=== PATIENT | female | born 1930 | race Caucasian/White ===

== ENCOUNTER 2016-07-06 09:07 | Observation (INO) | payer OTHER ==
--- NOTE | ~2016-07-06 | HP ---
History And Physical [place] [id number] [facility] [place]. [address] NAME: YENNY REEVES : 32 STATUS : ADM Lev PAT#: [id number] AGE: 85 ADM/REG DATE : 07/06/16 MR#: [id number] REPORT SERV DATE: 07/07/16 DICTATED BY: SHERRILL DELGADILLO III DATE: 07/06/16 REPORT STATUS : Draft TRANSCRIBED BY: JAMILAH DATE: 07/06/16 DATE OF ADMISSION: 07/06/2016 HISTORY OF PRESENT ILLNESS: Mrs. Yenny Reeves is an 85-year-old white female from [place], [place], admitted for evaluation of chest pain. The patient has no coronary artery disease. The patient underwent percutaneous coronary intervention with implantation of a stent in 10/[address] Ashutosh Bauer. The patient has undergone no coronary angiography since that time. A recent echocardiogram demonstrated the left ventricular ejection fraction of 40% and moderate mitral regurgitation. The patient had been in her usual state of health until approximately one year prior to this admission. At that time, the patient had the onset of dull substernal-epigastric chest pain without radiation. The patient denied any associated dyspnea, diaphoresis, nausea, or vomiting. The patient's chest pains have been exacerbated by deep inspiration. The patient denied relation to exertion, emotional upset, oral intake, and positional change. The patient denied relief with nitroglycerin. The patient denied trying antacids or heating pad. The patient has no history of migraine headaches or symptoms suggestive of Raynaud phenomenon. On 06/17/2016, the patient underwent an intravenous regadenoson dual isotope scintigram. Myocardial perfusion imaging demonstrated a fixed apical defect. Gated SPECT images demonstrated global hypokinesis. The calculated global left ventricular ejection fraction was 32%. The patient was scheduled for an elective cardiac catheterization. The patient did well until approximately 24 hours prior to this admission. At that time, the patient noted the onset of continuous dull substernal-epigastric pain. The patient was subsequently seen in the [facility] Emergency Room. A 12-lead electrocardiogram demonstrated sinus rhythm and left ventricular hypertrophy with repolarization abnormalities. The patient's troponin I level was less than 0.02. The patient's B type natriuretic peptide level was 1237, BUN 33, and creatinine was 2.44. The patient was subsequently admitted for further evaluation. The patient complained of dyspnea on exertion, but could not quantitate her functional limitation. The patient denied paroxysmal nocturnal dyspnea, pedal edema, syncope, and palpitations. The patient has no history of rheumatic fever or cardiac murmur. The patient's documented coronary artery disease risk factors include family history, hypertension, hyperlipoproteinemia, and peripheral arterial disease. PAST MEDICAL HISTORY: 1. Hypertension. 2. Hyperlipoproteinemia. 3. Peripheral arterial disease. 4. Stage IV chronic kidney disease. 5. Status post stroke. 6. Colitis. 7. Arthritis. 8. Gastroesophageal reflux. PROCEDURES: 1. Status post cholecystectomy. 2. Status post right elbow open reduction and internal fixation. History And Physical [address] [address] NAME: YENNY REEVES : 32 STATUS : ADM Lev PAT#: [id number] AGE: 85 ADM/REG DATE : 07/06/16 MR#: [id number] REPORT SERV DATE: 07/07/16 DICTATED BY: SHERRILL DELGADILLO III DATE: 07/06/16 REPORT STATUS : Draft TRANSCRIBED BY: JAMILAH DATE: 07/06/16 3. Status post OU cataract extractions with intra-ocular lens implants. 4. Status post hemorrhoidectomy. ALLERGIES: HYDRALAZINE. MEDICATIONS: 1. Allopurinol 100 mg p.o. q.a.m. 2. Cetirizine 10 mg p.o. p.r.n. 3. Cholecalciferol 2000 units p.o. q.a.m. 4. Clopidogrel 37.5 mg p.o. q.a.m. 5. Famotidine 10 mg p.o. q.a.m. 6. Furosemide 20 mg p.o. daily. 7. Losartan 25 mg p.o. daily. 8. Metoprolol 12.5 mg p.o. b.i.d. 9. Temazepam 15 mg p.o. at bedtime. 10.Tramadol 50 mg p.o. b.i.d. p.r.n. FAMILY HISTORY: Positive for myocardial infarction and arthritis. Negative for hypertension, seizures, stroke, diabetes mellitus, cancer, kidney disease, liver disease, anemia, and mental illness. SOCIAL HISTORY: The patient has remote history of alcohol use. The patient discontinued cigarette smoking approximately 28 years prior to this admission. PHYSICAL EXAMINATION: GENERAL: An alert, elderly white female, in no acute distress. VITAL SIGNS: Demonstrated a temperature of 97.6 orally, respiratory rate of 18 breaths per minute, and a blood pressure of 162/69 mmHg with a heart rate of 86 beats per minute. SKIN: Warm and dry. NECK: Supple and nontender. There was no jugular venous distention at 90 degrees. There were no carotid bruits. BACK: Examination of the back demonstrated no spinal or costovertebral angle tenderness. CHEST: Examination of the chest demonstrated left greater than right basilar inspiratory crackles. There were no rhonchi, wheezes, or pleural rubs. There was symmetrical expansion of the chest. There was no use of the accessory muscle on respiration. CARDIAC: Cardiac examination demonstrated a nonpalpable apical impulse. There was a regular rhythm and rate without murmur, rub, gallop, or mid systolic click. There were no thrills or heaves. ABDOMEN: Examination of the abdomen demonstrated that it was diffusely tender. The abdomen was soft. There was no hepatosplenomegaly or masses. Bowel sounds were intact. There were no appreciable abdominal or femoral bruits. BACK: Examination of the extremities demonstrated they were symmetrical. There was decreased range of motion. There was no cyanosis or clubbing. There was 1+ pitting left pedal edema. Pulses were 2+ and equal at the radial and femoral arteries. The right dorsalis pedis pulse was 1+, and the left dorsalis pedis pulse was 2+. The right posterior tibial pulse was 1+, and the left posterior tibial pulse was nonpalpable. History And Physical [address] [address] NAME: YENNY REEVES : 32 STATUS : ADM Lev PAT#: [id number] AGE: 85 ADM/REG DATE : 07/06/16 MR#: [id number] REPORT SERV DATE: 07/07/16 DICTATED BY: SHERRILL DELGADILLO III DATE: 07/06/16 REPORT STATUS : Draft TRANSCRIBED BY: JMAILAH DATE: 07/06/16 ASSESSMENT: Mrs. Yenny Reeves is an 85-year-old white female with four other risk factors for coronary atherosclerotic disease (i.e. family history, hypertension, hyperlipoproteinemia, peripheral arterial disease), status post coronary stent (10/2009), decreased left ventricular systolic function, and mild to moderate mitral regurgitation; who presents with progressive non anginal chest pain, abnormal intravenous regadenoson dual isotope scintigram, stage IV chronic kidney disease, and congestive heart failure. The patient's troponin I level and 12-lead electrocardiogram demonstrate no evidence of myocardial ischemia or infarction. The patient's myocardial perfusion scan demonstrated a fixed apical defect, global hypokinesis, and a calculated global left ventricular ejection fraction of 32%. The myocardial perfusion scan placed the patient in a subgroup at intermediate risk for cardiovascular event. Considering the patient's chronic kidney disease, I plan to defer coronary angiography to Dr. Enriquez. Should the patient's cardiac biomarkers and 12-lead electrocardiograms remain negative, I plan to discharge the patient on medical therapy. BETH/MODL Sherrill Delgadillo III, M.D., [place], [facility] / [id number] CC: Sherrill Delgadillo III, M.D., [facility] Xiang Enriquez M.D.
--- NOTE | ~2016-07-06 | CN ---
Consultation Report [facility] [address] [place]. [address] NAME: KALANI REEVES : 32 STATUS : ADM Lev PAT#: [id number] AGE: 85 ADM/REG DATE : 07/06/16 MR#: [id number] REPORT SERV DATE: 07/06/16 DICTATED BY: JEFFERY BROWN DATE: 07/06/16 REPORT STATUS : Draft TRANSCRIBED BY: MODL DATE: 07/06/16 NEPHROLOGY CONSULT DATE OF CONSULTATION: 07/06/2016 REASON FOR CONSULT: Chronic kidney disease. HISTORY OF PRESENT ILLNESS: Ms Reeves is a very pleasant 85-year-old white female, seen in the office of [facility] by Dr. Israel Rousseau. Her baseline creatinine is in the 2.4 to 2.7 range and she has mature right forearm AV fistula in place. She was last seen in the office 05/2016 when creatinine was 2.5, GFR 20, and urine protein creatinine ratio was 0.255. She was admitted through the ER earlier today with complaints of worsening dyspnea and angina over the last several days. CT scan showed small bilateral pleural effusions, atrophic kidneys without hydronephrosis. Chest x-ray showed increasing venous congestion. BNP was 1237. Creatinine 2.4. Troponin 0.02. She is being admitted by Cardiology. She was scheduled for outpatient cardiac catheterization on 07/19/2016. PAST MEDICAL HISTORY: 1. CKD stage 4, baseline creatinine 2.4 to 2.7. 2. Hypertension, on ARB. 3. Atherosclerotic cardiovascular disease, status post PCI on chronic Plavix. 4. History of stroke with chronic right-sided numbness. 5. Osteoarthritis. 6. Hyperlipidemia. 7. Renal artery stenosis with left renal artery stenting, 05/2014. 8. EF 40% by echo, 05/2014. 9. Asymptomatic carotid artery stenosis. MEDICATIONS: Allopurinol, Zyrtec, vitamin D, Plavix, Pepcid, Lasix 20 mg daily, losartan 25 mg daily, metoprolol 12.5 mg b.i.d., Restoril, and Ultram. FAMILY HISTORY: No ESRD. SOCIAL HISTORY: She is a . Nonsmoker. Lives in [place], [place]. Retired and has supportive family. REVIEW OF SYSTEMS: Significant for chest pain for the last year, which has worsened over the last couple of weeks. She has had angina waking her from sleep, 8/10 chest pain radiating to the shoulders. She has had worsening PND, orthopnea, and dyspnea over the last several days. PHYSICAL EXAMINATION: Consultation Report [place] [id number] [place]. [address] NAME: KALANI REEVES : 32 STATUS : ADM Lev PAT#: [id number] AGE: 85 ADM/REG DATE : 07/06/16 MR#: [id number] REPORT SERV DATE: 07/06/16 DICTATED BY: JEFFERY BROWN DATE: 07/06/16 REPORT STATUS : Draft TRANSCRIBED BY: JAMILAH DATE: 07/06/16 VITAL SIGNS: Temperature 97.8, pulse 73, respirations 16, blood pressure 148/67, 96% saturation on room air. GENERAL: She is a very pleasant elderly white female, who is awake, alert, oriented, and cooperative with the exam. She is in her hospital stretcher, in no distress. Accompanied by supportive family. HEENT: Sclerae without icterus. Conjunctivae not injected. Oropharynx is clear. NECK: JVD 10 cm. LUNGS: She has bilateral rhonchi with decreased breath sounds at the bases, but no dyspnea or tachypnea on room air. HEART: Regular rate and rhythm. 2/6 murmur. ABDOMEN: Soft, nontender, nondistended. Bowel sounds present throughout without rebound or guarding. EXTREMITIES: Without edema. SKIN: Without rash. NEURO EXAM: Nonfocal. MUSCULOSKELETAL: Shows no active gout, right forearm AV fistula, palpable thrill, audible bruit. LABORATORY DATA: Sodium 139, potassium 4.8, bicarb 29, BUN 33, creatinine 2.4, GFR 18. Magnesium 2.3. Albumin 3.9. Troponin 0.02. Liver function tests normal. White count 5.3, hemoglobin 12.2, platelets 214,000. BNP 1237. ASSESSMENT AND PLAN: Ms Reeves has chronic kidney disease stage 4 with renal function, near baseline with creatinine 2.4, GFR 18 mL/minute, presents with hypertension, chest pain, dyspnea. She has volume overload, atherosclerotic cardiovascular disease, renal artery stenosis with left renal artery stent, ejection fraction 40%. She has no overt uremic symptoms at this time. Hold ARB and diurese with IV Lasix. Long discussion with patient. Await Cardiology plans. She is high risk for developing worsening renal function and end-stage renal disease requiring renal replacement therapy with contrast. However, with her worsening chest pain she may need to proceed with cardiac catheterization during this admission. Protect right arm. Watch labs. Supportive care. Family updated in room and agree with treatment plans. We will follow closely with you. GAEL/JAMILAH Jeffery Brown M.D. / [id number] CC: Aidan Delgadillo III, M.D., [facility], [facility] Consultation Report [address] [place]. [address] NAME: KALANI REEVES : 32 STATUS : ADM Lev PAT#: [id number] AGE: 85 ADM/REG DATE : 07/06/16 MR#: [id number] REPORT SERV DATE: 07/06/16 DICTATED BY: JEFFERY BROWN DATE: 07/06/16 REPORT STATUS : Draft TRANSCRIBED BY: JAMILAH DATE: 07/06/16 Israel Rousseau M.D.
[~2016-07-06 09:07] MED LIST: ACCU10 PO; AMB5 PO; AMITIZA8 MCG PO; APRES50 PO; ASAB PO; ASCRIPTIN PO; ATV.5 PO; BELSOMRA PO; CAT1 PO; COZ50 PO; DCN100 PO; DIOV160 PO; DIOV80 PO; FLAG500TAB PO; FLAGIV500 IV; FOLIC PO; HALF81 PO; L40 PO; LEVAQUIN750 MG PO; LEVSINTAB PO; LIALDA1.2 GM PO; LIPITOR40 PO; LOP25 PO; MCZ25 PO; MEVACOR PO; NIFEDICAL XL30 MG PO; NORV25 PO; NORV5 PO; PEP20 PO; PEPCID AC PO; PLAVIX PO; PRIN2.5 PO; PROTONIX PO; TOPXL50 PO; ULTRAM50 PO; VITAMIN D2000 UNIT PO; Z100 PO; ZOFRAN4 PO
[2016-07-06] MEDS ORDERED: L20 PO (09:55)
[2016-07-06] MEDS ORDERED: COZ25 PO (09:55)
[2016-07-06] MEDS ORDERED: REST15 PO (09:55)
[2016-07-06] MEDS ORDERED: ZYRTEC ALLGY10 MG PO (09:55)
[2016-07-06 10:16] LABS: BASOPHILS 0.6 %; BASOPHILS ABSOLUTE 0.03 10/3/uL (0.0-0.16); EOSINOPHILS 1.9 %; IMMATURE GRANULOCYTES 0.2 %; IMMATURE GRANULOCYTES ABSOLUTE 0.01 10/3/uL (0.0-0.11); LYMPHOCYTES 24.2 %; LYMPHOCYTES ABSOLUTE 1.28 10/3/uL (0.67-4.30); MEAN CORPUS HGB CONC 33.3 g/dL (32.0-36.0); MEAN CORPUSCULAR HEMOGLOB 31.9 pg (26.0-34.0); MEAN CORPUSCULAR VOLUME 95.6 fL (80-100); MEAN PLATELET VOLUME 10.7 fL (9.2-13.0); MONOCYTES 10.6 %; MONOCYTES ABSOLUTE 0.56 10/3/uL (0.21-1.20); NEUTROPHILS 62.5 %; RBC DISTRIBUTION WIDTH 13.6 % (12.0-16.0); WHITE BLOOD CELLS 5.3 10/3/uL (4.5-10.5)
[2016-07-06 10:17] LABS: ER CBC TAT 0 Hrs 07 Mins; HEMATOCRIT 36.6 % (36.0-48.0); HEMOGLOBIN 12.2 g/dL (12.0-16.0); MANUAL DIFF NO %; PLATELET COUNT 214 10/3/uL (150-400); RED CELL COUNT 3.83 10/6/uL (4.0-5.6)
[2016-07-06 10:24] LABS: PARTIAL THROMBO TIME 27.5 SEC (22.5-37.2); PROTIME (NOT ORD) 13.5 SEC (12.0-14.5)
[2016-07-06 10:30] LABS: ASCORBIC ACID (UR NOT ORDER) NEG (NEG); BILIRUBIN, URINE NEGATIVE (NEG); KETONE, URINE NEGATIVE (NEG); LEUKOCYTE ESTERASE(NOT OR NEG (NEG); NITRITE (URINE) NEG (NEG); WBC (NOT ORDERED) (RFLEX) < 1 (0-5)
[2016-07-06 10:35] LABS: ALBUMIN 3.9 G/DL (3.5-5.0); ALKALINE PHOSPHATASE 106 U/L (45-117); BUN (BLOOD UREA NITROGEN) 33 MG/DL (6-23); CALCIUM, SERUM 9.1 MG/DL (8.5-10.4); CHEST PAIN PROFILE TAT 0 Hrs 26 Mins; CHLORIDE, SERUM 105 MMOL/L (96-112); CO2 (CARBON DIOXIDE) 29 MMOL/L (24-34); CREATININE 2.44 MG/DL (0.55-1.02); DIRECT BILIRUBIN 0.2 MG/DL (0.0-0.4); GFR AFRICAN AMERICAN 20 ML/MIN (>=60); GFR NON AFRICAN AMERICAN 18 ML/MIN (>=60); GLUCOSE, SERUM 84 MG/DL (60-99); INDIRECT BILIRUBIN(NOT ORDER) 0.7 MG/DL (0.1-0.9); POTASSIUM, SERUM 4.8 MMOL/L (3.5-5.3); SGOT(AST) 18 U/L (5-40); SGPT(ALT) 18 U/L (5-65); SODIUM, SERUM 139 MMOL/L (135-148); TOTAL BILIRUBIN 0.9 MG/DL (0-1.2); TOTAL PROTEIN 6.6 G/DL (6.0-8.5); TROPONIN I <0.02 NG/ML (<0.05)
[2016-07-06 14:26] LABS: TROPONIN I 0.02 NG/ML (<0.05)
[2016-07-06 14:27] LABS: CK-MB 1.5 NG/ML; CPK 57 U/L (0-200)
[2016-07-06 21:50] LABS: CPK 57 U/L (0-200); TROPONIN I 0.02 NG/ML (<0.05)
[2016-07-06 21:52] LABS: CK-MB 1.7 NG/ML
[2016-07-07 05:53] LABS: ALBUMIN 3.8 G/DL (3.5-5.0); CALCIUM, SERUM 9.2 MG/DL (8.5-10.4); CHLORIDE, SERUM 105 MMOL/L (96-112); CO2 (CARBON DIOXIDE) 27 MMOL/L (24-34); CPK 66 U/L (0-200); CREATININE 2.71 MG/DL (0.55-1.02); GFR AFRICAN AMERICAN 18 ML/MIN (>=60); GFR NON AFRICAN AMERICAN 15 ML/MIN (>=60); GLUCOSE, SERUM 79 MG/DL (60-99); POTASSIUM, SERUM 4.4 MMOL/L (3.5-5.3); SODIUM, SERUM 141 MMOL/L (135-148); TROPONIN I 0.02 NG/ML (<0.05)
[2016-07-07 06:10] LABS: BUN (BLOOD UREA NITROGEN) 45 MG/DL (6-23); CK-MB 1.4 NG/ML; PHOSPHORUS, SERUM 4.4 MG/DL (2.5-4.5)
[2016-09-16] MEDS ORDERED: LOP25 PO (11:00)
[2016-09-16] MEDS ORDERED: Z100 PO (11:00)
[2016-09-16] MEDS ORDERED: PROTONIX PO (11:00)
[2016-09-16] MEDS ORDERED: PLAVIX PO (11:00)
[2016-09-16] MEDS ORDERED: ULTRAM50 PO (11:01)
[2016-09-16] MEDS ORDERED: VITAMIN D2000 UNIT PO (11:01)
[2016-09-16] MEDS ORDERED: ATV.5 PO (11:01)
[2016-09-16] MEDS ORDERED: L20 PO (11:01)
[2016-09-16] MEDS ORDERED: ACET500CAP PO (11:02)
[2016-09-16] MEDS ORDERED: NITROII10C TOP (11:04)
[2016-09-27] MEDS ORDERED: VITAMIN D2000 UNIT PO (07:26)
== END 2016-07-07 10:42 | disposition home or self-care (01) ==
LOC: ER 09:07 → CDU1 11:41
PROVIDERS: Emergency Medicine; Internal Medicine Cardiovascular Disease
DX: I13.0 Hypertensive heart and chronic kidney disease with heart failure and stage 1 through stage 4 chronic kidney disease, or unspecified chronic kidney disease (principal); N18.4 Chronic kidney disease, stage 4 (severe); I50.9 Heart failure, unspecified; N25.81 Secondary hyperparathyroidism of renal origin; I70.1 Atherosclerosis of renal artery; I25.10 Atherosclerotic heart disease of native coronary artery without angina pectoris; K21.9 Gastro-esophageal reflux disease without esophagitis; E78.5 Hyperlipidemia, unspecified; M81.0 Age-related osteoporosis without current pathological fracture; I73.9 Peripheral vascular disease, unspecified; M19.90 Unspecified osteoarthritis, unspecified site; Z86.73 Personal history of transient ischemic attack (TIA), and cerebral infarction without residual deficits; Z79.899 Other long term (current) drug therapy; Z87.891 Personal history of nicotine dependence; Z79.02 Long term (current) use of antithrombotics/antiplatelets; Z88.8 Allergy status to other drugs, medicaments and biological substances
CPT/HCPCS: 71010; 74176; 80048; 80069; 80076; 81001; 82550; 82553; 83690; 83735; 83880; 84484; 85025; 85610; 85730; 93005; 96372; 96376; 99285; A9270-GY; G0378; J1940